=== PATIENT | female | born 1980 | race Caucasian/White ===

== ENCOUNTER 2017-05-19 13:53 | Emergency (ER) | payer MEDICAID, OTHER ==
[~2017-05-19] VITALS: Ht 160 cm; Wt 88.3 kg
[~2017-05-19 13:53] MED LIST: DOCU-250 PO; PER10325T PO; PHEN-645 PO
[2017-05-19] MEDS ORDERED: BUPIVAcaine/PF 2.5 mg/ml (0.25%) 30ml vial IJ ONE (17:30)
[2017-05-19] MEDS ORDERED: TETanus/Pertussis (Acell)/Diphther VAC/PF (Tdap-Adult) 0.5ml syringe IMVAC ONE (17:40)
[2017-05-19] MEDS ORDERED: TRAM50TA2 PO (18:19)
[2017-05-19] MEDS ORDERED: CEPH500C2 PO (18:19)
[2017-05-19] MEDS ORDERED: IBUP-1986 PO (18:19)
[2017-05-19 18:30] VITALS: BP 148/90
[2017-05-19] MEDS ORDERED: nitroGLYCERIN 1gm ointment UD TP ONE (18:50)
== END 2017-05-19 19:32 | disposition home or self-care (01) ==
LOC: ER 13:53
DX: S61.011A Laceration without foreign body of right thumb without damage to nail, initial encounter (principal); Z79.899 Other long term (current) drug therapy; W23.0XXA Caught, crushed, jammed, or pinched between moving objects, initial encounter; Y93.89 Activity, other specified; Y92.89 Other specified places as the place of occurrence of the external cause; Y99.8 Other external cause status
CPT/HCPCS: 12001; 73140; 90471; 90715; 99284; A6255; A6449; J3490